=== PATIENT | male | born 1965 | race Caucasian/White ===

== ENCOUNTER 2018-05-23 10:40 | Outpatient (CLI) | payer MEDICAID ==
[~2018-05-23] VITALS: Ht 180.3 cm; Wt 122.7 kg
--- NOTE | ~2018-05-23 | OP ---
PATIENT NAME: SMOOTH SIMMONS MEDICAL RECORD: [id number] :65 LOCATION:D.CAT ADMISSION DATE: SURGEON: ROSEM ARY LOBO MD DATE OF OPERATION: 05/23/2018 PROCEDURE: Left heart catheterization, selective coronary angiography, right radial approach. CATHETERS: [place] catheter, radial sheath. The procedure was well tolerated and the patient was returned to [facility]. Sheath was removed. TR band was placed. FINDINGS: Left ventriculography in 30-degree [place] view: Normal wall motion. Normal systolic function. CORONARY ANATOMY: LEFT MAIN: Left main is free of disease. LAD: LAD is free of disease in the diagonal system. CIRCUMFLEX: Free of disease in the marginal system. RIGHT CORONARY ARTERY: Dominant artery, gives rise to PDA, free of disease. IMPRESSION: Normal LV systolic function. Normal coronary anatomy. TRANSINT:[id number] Voice Confirmation ID: [id number] DOCUMENT ID: [id number] ROSE MARY LOBO MD at 1254 CC: [id number] DICTATION DATE: 05/23/18 1550 GRAIN ELEVATOR CLERK: 05/23/18 1752 DEP CLI 05/23/[address] [facility] [address] [id number]
--- NOTE | ~2018-05-23 | HEMODYNAMI ---
PATIENT:SMOOTH SIMMONS MEDICAL RECORD: [id number] : 65 LOCATION:[facility] ADMISSION DATE: 05/23/18 Generatedon:05/23/201815:37 Patient name: SMOOTH SIMMONS Patient #: [id number] SSN: : 1965 Date of study: 05/23/2018 Page: Of Hemodynamic Procedure Report Patient Data Patient Demographics Procedure consent was obtained First Name: SMOOTH Gender: Male Last Name: IRIS : 1965 Middle Initial: G Age: 53 year(s) Patient #: [id number] Race: Unknown Additional ID: [id number] Contact details Address: [facility] [address] State: [place] City: [place] Zip code: [address] Past Medical History Allergies: No known allergies Admission Admission Data Admission Date: 05/23/2018 Admission Time: 10:40 Procedure Procedure Types Cath Procedure Diagnostic Procedure LHC LHC w/Coronaries Sedation Charges Moderate Sedation up to 15 minutes Procedure Description Procedure Date Procedure Date: 05/23/2018 Procedure Start Time: 15:22 Procedure End Time: 15:36 Procedure Staff Name Function Sarabjit Petty MD Performing Physician Taniya Gould RT Monitor Marcia Larson RT Scrub Dung Caba RN Nurse Procedure Data Cath Procedure Fluoroscopy Diagnostic fluoroscopy Total fluoroscopy Time: 5 time: 5 min min Diagnostic fluoroscopy Total fluoroscopy dose: dose: 1006 mGy 1006 mGy Contrast Material Contrast Material Type Amount (ml) Isovue 300 69 Entry Location Entry Primary Successful Side Size Upsize Upsize Entry Closure Cummings ccessful Closure Location (Fr) 1 (Fr) 2 (Fr) Remarks Device Remarks Radial Right 6 Fr Mechanical artery Short Compression Estimated blood loss: 10 ml Diagnostic catheters Device Type Used For End Catheter Placement DIAGNOSTIC [place] 110cm 5 Procedure Fr catheter ([id number]) DIAGNOSTIC JL 3.5 5Fr Procedure catheter ([id number]) Procedure Complications No complications Procedure Medications Medication Administration Route Dosage 0.9% NaCl I.V. 100 ml/hr Oxygen etCO2 Nasal cannula 2 l/min Heparin Flush Bag added to field 2 bags (1000units/500ml NS) Lidocaine 2% added to field 20 Radial Cocktail added to field 1 syringe (Verapomil 2mg/Nitro 400mcg/Heparin 1500units) Versed I.V. 2 mg Fentanyl I.V. 100 mcg Versed I.V. 2 mg Fentanyl I.V. 100 mcg Versed I.V. 2 mg Radial Cocktail I.A. 1 syringe (Verapomil 2mg/Nitro 400mcg/Heparin 1500units) Hemodynamics Rest Heart Rate: 93 (bpm) Pressure Samples Time Site Value (mmHg) Purpose Heart Use Rate(bpm) 15:24 LV 98/16,19 Snapshot 93 15:24 AO 103/84(92) Pullback 86 15:24 LV 87/12,15 Pullback 86 Gradients Valve Time Site 1 Site 2 Mean SEP/DFP Peak To Heart Use (mmHg) (sec/min) Peak Rate (mmHg) (bpm) Aortic 15:24 LV AO 0 86 87/12,15 103/84(92) Calculations Valve P-P Mean Valve Index Valve Source Name Gradient Area Flow (cm2) Aortic 0 0 Snapshots Pre Cath Intra NCS Post Cath Vital Signs Time Heart Resp SPO2 etCO2 NIBP (mmHg) Rhythm Pain Sedation Rate (ipm) (%) (mmHg) Status Level (bpm) 15:02:31 57 22 98 0 122/75(95) NSR 0 (11) 10(A) , No pain 15:06:41 65 13 96 0 118/76(94) NSR 0 (11) 10(A) , No pain 15:10:45 65 14 97 41.9 109/73(92) NSR 0 (11) 10(A) , No pain 15:14:48 78 13 97 23.2 125/75(88) NSR 0 (11) 10(A) , No pain 15:18:58 82 13 97 30.7 117/75(99) NSR 0 (11) 10(A) , No pain 15:23:43 118 14 92 0.7 116/98(115) NSR 0 (11) 10(A) , No pain 15:28:32 88 15 93 0 99/65(95) NSR 0 (11) 9(A) , No pain 15:33:23 79 14 92 44.9 100/69(97) NSR 0 (11) 9(A) , No pain Medications Time Medication Route Dose Verified Delivered Reason Notes Effectiveness by by 15:05:58 0.9% NaCl I.V. 100 Dung Dung Per ml/hr Rosales Caba physician RN RN 15:06:13 Oxygen etCO2 2 l/min Dung Dung Per Nasal Rosales Caba physician cannula RN RN 15:06:22 Heparin Flush added 2 bags Dung Dung used for Bag to Lorigan Lorkarma procedure (1000units/500ml field RN RN NS) 15:06:32 Lidocaine 2% added 20ml Dung Dung for local to vial Lorigan Ivanaigan anesthetic field RN RN 15:06:53 Radial Cocktail added 1 Dung Dung used for (Verapomil to syringe Lorigan Lorigan procedure 2mg/Nitro field RN RN 400mcg/Heparin 1500units) 15:17:58 Versed I.V. 2 mg Dung Dung for sedation Rosales Caba RN RN 15:18:06 Fentanyl I.V. 100 mcg Dung Dung for sedation Rosales Caba RN RN 15:19:53 Versed I.V. 2 mg Dung Dung for sedation Lorkarma Caba RN RN 15:20:00 Fentanyl I.V. 100 mcg Dung Dung for sedation Lorkarma Caba RN RN 15:21:58 Versed I.V. 2 mg Dung Dung for sedation Lorkarma Caba RN RN 15:22:15 Radial Cocktail I.A. 1 Dung Sarabjit for (Verapomil syringe Lorigan Malinda vasodilation 2mg/Nitro RN 400mcg/Heparin 1500units) Procedure Log Time Note 14:52:52 Diagnostic Cath Status : Elective 14:54:51 Marcia Larson RT(R) sent for patient. Start room use. 14:54:52 Time tracking: Regular hours (M-F 7:00 - 5:00) 14:54:57 Plan of Care:Hemodynamics will remain stable., Cardiac rhythm will remain stable., Comfort level will be maintained., Respiratory function will remain adequate., Patient/ family verbilizes understanding of procedure., Procedure tolerated without complication., Recovers from procedure without complications.. 14:58:05 Patient received from Pre/Post Procedure Room to CCL 2 Alert and oriented. Tansferred to table in Supine position. 14:58:06 Warm blankets applied, and jose hugger turned on for patient comfort. 14:58:07 Correct patient and procedure confirmed by team. 14:58:12 Signed procedure consent form obtained from patient. 14:58:13 ECG and BP/O2 sat monitors applied to patient. 15:01:33 Vital chart was started 15:01:34 Baseline sample Acquired. 15:01:39 Rhythm: sinus rhythm 15:01:43 Full Disclosure recording started 15:01:48 Baseline sample Acquired. 15:01:58 H&P Date Dictated: 05/17/2018 Within 30 days and on chart., H&P Addendum completed by physician on day of procedure. (MUST COMPLETE FOR ALL OUTPATIENTS). 15:01:59 Pre-procedure instructions explained to patient. 15:02:02 Family in waiting room. 15:02:03 Patient NPO since Midnight. 15:02:10 Patient allergic to No known allergies 15:02:15 Is the patient allergic to Iodine/contrast media? No. 15:02:17 Was the patient premedicated? Yes 15:02:19 Is patient on blood thinner?Yes 15:02:21 ACC The patient was administered the following blood thiners within the last 24 hours: ACCAspirin 15:02:32 Patient diabetic? Unknown. 15:02:35 If diabetic: On Metformin? No 15:02:39 Snore? Yes 15:02:41 Sleep apnea? Yes 15:02:52 Airway obstruction? Yes chronic broncitis 15:02:56 Dentures? No ? 15:03:05 Patient pain scale 0/10 ?. 15:03:16 IV patent on arrival in left forearm with 0.9% NaCl at [facility]. 15:03:21 Lab results completed and on chart. 15:03:25 Right Radial & Right Groin area was prepped with chlora-prep and draped in sterile fashion 15:03:26 Alarms reviewed by R. N. 15:03:27 Sharps counted by scrub and verified by R.N. 15:03:32 Physician paged 15:05:58 0.9% NaCl 100 ml/hr I.V. was administered by Dung Caba RN; Per physician; 15:06:13 Oxygen 2 l/min etCO2 Nasal cannula was administered by Dung Caba RN; Per physician; 15:06:22 Heparin Flush Bag (1000units/500ml NS) 2 bags added to field was administered by Dung Caba RN; used for procedure; 15:06:32 Lidocaine 2% 20ml vial added to field was administered by Dung Caba RN; for local anesthetic; 15:06:53 Radial Cocktail (Verapomil 2mg/Nitro 400mcg/Heparin 1500units) 1 syringe added to field was administered by Dung Caba RN; used for procedure; 15:12:47 Physician arrived 15:12:47 --------ALL STOP TIME OUT------ 15:12:48 Final Timeout: patient, procedure, and site verified with staff and physician. All members of the team are in agreement. 15:12:50 Right Radial & Right Groin site verified by team. 15:12:54 Physical assessment completed. ASA score P 2 - A patient with mild systemic disease as per Sarabjit Petty MD. 15:12:59 Sedation plan: IV Moderate Sedation Medication:Versed, Fentanyl 15:13:07 Use device set Radial Dx or PCI 15:13:08 ACIST Syringe (36588) opened to sterile field. 15:13:09 Medline Cath Pack ([id number]) opened to sterile field. 15:13:09 Bag Decanter (2002S) opened to sterile field. 15:13:10 DIAGNOSTIC WIRE .035 260cm J wire (271532) opened to sterile field. 15:13:11 ACIST Hand Control (20547) opened to sterile field. 15:13:11 ACIST Manifold (37807) opened to sterile field. 15:13:13 MBrace Wrist Support ([id number]) opened to sterile field. 15:13:18 SHEATH 6Fr Prelude Radial ([id number]) opened to sterile field. 15:17:58 Versed 2 mg I.V. was administered by Dung Caba RN; for sedation; 15:18:06 Fentanyl 100 mcg I.V. was administered by Dung Caba RN; for sedation; 15:18:34 Zero performed for pressure channel P1 15:19:53 Versed 2 mg I.V. was administered by Dung Caba RN; for sedation; 15:20:00 Fentanyl 100 mcg I.V. was administered by Dung Caba RN; for sedation; 15:21:47 Procedure started. 15::58 Versed 2 mg I.V. was administered by Dung Caba RN; for sedation; 15:22:00 Local anesthetic to right radial artery with Lidocaine 2% by Sarabjit Petty MD.INITIAL ACCESS ONLY 15:22:09 A 6 Fr Short sheath was inserted into the Right Radial artery 15:22:15 Radial Cocktail (Verapomil 2mg/Nitro 400mcg/Heparin 1500units) 1 syringe I.A. was administered by Sarabjit Petty MD; for vasodilation; 15:22:37 A DIAGNOSTIC [place] 110cm 5 Fr catheter ([id number]) was advanced over the wire and used for Procedure. 15:23:51 LV angiography performed. 15:24:22 EF : 55 % 15:25:12 RCA angiography performed. 15:26:55 Catheter removed. 15:28:13 A DIAGNOSTIC JL 3.5 5Fr catheter ([id number]) was advanced over the wire and used for Procedure. 15:29:21 Catheter removed. 15:29:46 Baseline sample Acquired. 15:30:55 GUIDE 5FR EBU 4.0 catheter ([id number]) opened to sterile field. 15:31:09 LCA angiography performed. 15:32:43 Catheter removed. 15:33:18 Sheath removed intact; hemostasis achieved with Mechanical Compression to the Right Radial artery. 15:33:22 TR BAND Large ([id number]) opened to sterile field. 15:33:26 Procedure ended.(Physican Out) 15:35:03 Fluoroscopy time 05.00 minutes. 15:35:08 Fluoroscopy dose: 1006 mGy 15:35:08 Flurop Dose total: 1006 15:35:15 Contrast amount:Isovue 300 69ml. 15:35:16 Sharps counted by scrub and verified by R.N. 15:35:20 TR band inflated with 12cc of air. 15:35:21 Insertion/operative site no bleeding no hematoma. 15:35:23 Post Procedure Pulses reassessed and unchanged 15:35:29 Post-procedure physical assessment completed. ASA score P 2 - A patient with mild systemic disease as per Sarabjit Petty MD. 15:35:35 Post procedure rhythm: sinus rhythm 15:35:39 Estimated blood loss: 10 ml 15:35:41 Post procedure instruction explained to patient.Patient verbalizes understanding. 15:36:01 Procedure type changed to Cath procedure, Diagnostic procedure, LHC, LHC w/Coronaries, Sedation Charges, Moderate Sedation up to 15 minutes 15:36:02 Procedure and supply charges have been captured, reviewed, submitted and are correct. 15:36:30 Procedure Complication : No complications 15:36:33 Vital chart was stopped 15:36:34 See physician's report for complete and final results. 15:36:37 Report given to Pre/Post Procedure Room. 15:36:40 Patient transfered to Pre/Post Procedure Room with Stretcher. 15:36:45 Procedure ended. 15:36:45 Full Disclosure recording stopped 15:36:52 End room use (Document Last) Device Usage Item Name Manufacture Quantity Catalog Number Hospital Part Current M inimal Lot# / Charge Number Stock Stock Serial# Code ACIST Syringe Acist 1 [id number] 086310 066209 230914 2 0 (67124) [employer] Inc Medline Cath Cardinal 1 [id number] 726089 13979 824267 5 Pack Health ([id number]) Bag Decanter Microtek 1 2001S 893470 72592 565143 5 (2001S) Medical Inc. DIAGNOSTIC WIRE St Bucky 1 457024 449592 949734 495380 3 0 .035 260cm J wire (794909) ACIST Hand Acist 1 57676 399374 394919 799518 5 Control (14208) [employer] Inc ACIST Manifold Acist 1 54669 710942 366038 089445 5 (54155) [employer] Systems Inc MBrace Wrist Advanced 1 140-0250-00 658512 17725 001001 5 Support Vascular ([id number]) Dynamics SHEATH 6Fr Merit 1 [id number] 343417 762420 849739 5 Prelude Radial Medical ([id number]) DIAGNOSTIC Terumo 1 91-2630 052700 547977 148189 5 [place] 110cm 5 Fr catheter (235989) DIAGNOSTIC JL Cardinal 1 [id number] 165603 904204 147962 5 3.5 5Fr Health catheter (421356T) GUIDE 5FR EBU Medtronic 1 [id number] 249907 832083 522073 1 4.0 catheter ([id number]) TR BAND Large Terumo 1 [id number] 566550 170559 005067 4 0 ([id number]) Signature Audit [place] Stage Time Signature Unsigned Intra-Procedure 05/23/2018 Taniya Gould 3:37:29 PM RT(R) Signatures Monitor : Taniya Gould Signature : RT Date : Time : [id number] [facility] [place] [address]
[~2018-05-23 10:40] MED LIST: BUSPAR5 MG; LEXAPRO20 MG PO; NORCO 5/325 TAB1 TA1 PO; PRAVACHOL20 MG PO; PRINIVIL20 MG PO
[2018-05-23] MEDS ORDERED: ZOLOFT100 MG PO (11:16)
[2018-05-23] MEDS ORDERED: HCTZ25 MG PO (11:17)
[2018-05-23] MEDS ORDERED: LOVASTATIN20 MG PO (11:17)
[2018-05-23 11:25] VITALS: BP 119/75; Ht 180.3 cm; Wt 122.7 kg
[2018-05-23 11:41] LABS: BASOPHILS 0.4 % (0-2); EOSINOPHILS 2.5 % (0-7); HEMATOCRIT 43.8 % (42.0-54.0); HEMOGLOBIN 14.6 g/dL (13.5-17.5); IMMATURE GRANULOCYTES 0.4 % (0-5); LYMPHOCYTES 25.5 % (15-50); MCH 30.7 pg (26.0-34.0); MCHC 33.3 g/dL (31.0-37.0); MCV 92.2 fL (80.0-100.0); MEAN PLATELET VOLUME 10.8 fL (7.4-10.4); NEUTROPHILS 64.2 % (40-80); PLATELET COUNT 174 10x3/uL (130-400); RBC 4.75 10x6/uL (4.20-6.10); WBC 9.3 10x3/uL (4.8-10.8)
[2018-05-23 11:57] LABS: CALC OSMOLALITY 279 mosm/kg (275-300); CALCIUM 9.3 mg/dL (8.5-10.1); CARBON DIOXIDE 32.1 mmol/L (21.0-32.0); CHLORIDE - SERUM 102 mmol/L (98-107); GLUCOSE 100 mg/dL (74-106); SODIUM 139 mmol/L (136-145); UREA NITROGEN 19 mg/dL (7-18); eGFR NON AFRICAN AMERICAN 83 mL/min (90-120)
== END 2018-05-23 18:00 | disposition home or self-care (01) ==
LOC: D.CATH 10:40
PROVIDERS: Internal Medicine Interventional Cardiology
DX: I20.9 Angina pectoris, unspecified (principal); Z01.812 Encounter for preprocedural laboratory examination